=== PATIENT | male | born 1975 | race Caucasian/White ===

== ENCOUNTER 2016-12-23 03:41 | Inpatient (IN) | payer OTHER ==
[~2016-12-23] VITALS: Ht 175.3 cm; Wt 106.1 kg
[2016-12-23] VITALS (7 sets, daily range): BP systolic 95–119; BP diastolic 52–61; PULSE 77–99; RESP 14–18; TEMP 97–98.9; O2SAT 95–98
[~2016-12-23 03:41] MED LIST: CLON1 PO; SERO100T PO; SERO400T PO; TOPI25 PO; ZOLO50TA PO
[2016-12-23] MEDS ORDERED: GENTAMICIN 80 MG PREMIX 100 ML ONE (03:45)
[2016-12-23 03:58] LABS: I-STAT POTASSIUM 3.6 MMOL/L (3.5-4.9)
[2016-12-23 04:03] LABS: AUTOMATED NEUTROPHIL # 9.2 TH/MM3 (1.8-7.7); BASOPHIL # 0.1 TH/MM3 (0-0.2); BASOPHIL % 0.5 % (0.0-2.0); EOSINOPHIL % 0.2 % (0.0-4.0); HEMATOCRIT 39.6 % (39.0-51.0); HEMO FLAGS DIFF FINAL; LYMPH % 21.5 % (9.0-44.0); LYMPHOCYTE # 2.7 TH/MM3 (1.0-4.8); MEAN CELL VOLUME 91.9 FL (80.0-100.0); MEAN CORPUSCULAR HEMOGLOBIN 31.4 PG (27.0-34.0); MEAN CORPUSCULAR HGB CONC 34.2 % (32.0-36.0); MONO % 5.2 % (0.0-8.0); NEUT % 72.6 % (16.0-70.0); PLATELET COUNT 312 TH/MM3 (150-450); RED BLOOD COUNT 4.31 MIL/MM3 (4.50-5.90); RED CELL DISTRIBUTION WIDTH 13.2 % (11.6-17.2); WHITE BLOOD COUNT 12.7 TH/MM3 (4.0-11.0)
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
[2016-12-23] MEDS ORDERED: HALOPERIDOL LACTATE 5 MG/ML AMP ONE (04:13)
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
[2016-12-23 04:14] LABS: APTT (PATIENT) 23.5 SEC (24.3-30.1); PROTHROMBIN TIME - PATIENT 10.8 SEC (9.8-11.6)
[2016-12-23] MEDS ORDERED: IOHEXOL 350 MG/ML 10 ML VIAL (for RAD DIAG) IV ONE (04:14)
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
[2016-12-23] MEDS ORDERED: DIPHTH/TETANUS/ACEL PERTUSSIS (BOOSTER) 0.5 ML VIAL/PFS IM ONE (04:16)
[2016-12-23] MEDS ORDERED: ceFAZolin 2 GM PREMIX 50 ML IV STA (04:17)
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
[2016-12-23] MEDS ORDERED: CHLORHEXIDINE GLUCONATE 2 % 1 PACK (2 CLOTHS) TOP PRN (04:45)
[2016-12-23] MEDS ORDERED: ENALAPRILAT 1.25 MG/ML VIAL IV PRN (04:45)
[2016-12-23] MEDS ORDERED: ONDANSETRON HCL 4 MG/2 ML VIAL IV PRN (04:45)
[2016-12-23] MEDS ORDERED: SODIUM CHLORIDE 0.9% FLUSH 10 ML FLUSH IV FLUSH PRN (04:45)
[2016-12-23] MEDS ORDERED: MISCELLANEOUS NURSING INFORMATION XX SCH (04:45)
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
[2016-12-23] MEDS: LACTATED RINGER'S 1000 ML INJ 1,000 ML IV SCH ×3 (05:17→13:59)
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
[2016-12-23] MEDS: HYDROmorphone HCL PF 1 MG/ML VIAL IVP PRN (07:33)
[2016-12-23] MEDS ORDERED: FAMOTIDINE 20 MG/2 ML VIAL ONE (08:23)
[2016-12-23] MEDS ORDERED: HYDROmorphone HCL PF 2 MG/ML VIAL ONE (08:23)
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
[2016-12-23] MEDS ORDERED: MIDAZOLAM HCL 2 MG/2 ML VIAL ONE (08:43)
[2016-12-23] MEDS ORDERED: VANCOMYCIN HCL 1000 MG VIAL ONE (08:46)
[2016-12-23] MEDS ORDERED: SODIUM CHLOR 0.9% 250 ML INJ 250 ML ONE (08:47)
[2016-12-23] MEDS ORDERED: GENTAMICIN SULFATE 80 MG/2 ML VIAL ONE (08:47)
[2016-12-23] MEDS ORDERED: fentaNYL CITRATE 250 MCG/5 ML AMP ONE (08:54)
[2016-12-23] MEDS ORDERED: ACETAMINOPHEN 1000 MG/100 ML VIAL IV ONE (08:54)
[2016-12-23] MEDS: BACITRACIN TOP OINT 15 GM TUBE TOP SCH ×2 (09:00→20:06)
[2016-12-23] MEDS: DOCUSATE SODIUM 50 MG/SENNA 8.6 MG TAB PO SCH ×2 (09:00→20:06)
[2016-12-23] MEDS ORDERED: BUPIVACAINE/EPINEPHRINE 0.25% PF 10 ML VIAL ONE (09:51)
[2016-12-23] MEDS ORDERED: NEOSTIGMINE 3 MG/3 ML SYR IV ONE (11:07)
[2016-12-23] MEDS ORDERED: PROPOFOL 200 MG/20 ML AMP IV ONE (11:07)
[2016-12-23] MEDS ORDERED: LACTATED RINGER'S 1000 ML INJ 1,000 ML IV ONE (11:08)
[2016-12-23] MEDS ORDERED: ONDANSETRON HCL 4 MG/2 ML VIAL IV PUSH ONE (11:08)
[2016-12-23] MEDS ORDERED: PHENYLEPH/NS 1000 MCG/10 ML SYR IV ONE (11:08)
[2016-12-23] MEDS: 1/2 NS + KCL 20 MEQ INJ 1,000 ML IV SCH ×2 (11:12→20:07)
--- NOTE | 2016-12-23 11:20 | PD.OP ---
cc: Romel Lizarraga MD Operative Report Date of Surgery: Dec 23, 2016 Preoperative Diagnosis: Displaced left femoral shaft open fracture Postoperative Diagnosis: Procedure: Irrigation and debridement open fracture, Left femur reduction and intramedullary nail fixation Surgeon: Romel Lizarraga Spanish Linguist(s): ALYSIA Araujo PA-C The surgical procedure was assisted by my physician orthotic assistant. My P.A. presence was necessary throughout this case for the manipulation and positioning of the surgical extremity. My P.A. was assisting me throughout the duration of this procedure. The skill set of a physician orthotic assistant was medically necessary to complete this procedure. During the surgical case the business office technology instructor was working at the back table and the physician orthotic assistant was directly assisting me. Operation and Findings: Implants used: 380 mm x [10]mm Synthes femoral nail Patient was seen and evaluated preoperatively. The patient has comminuted open left femur fracture. The risk and benefits of surgery were discussed in depth with the patients family to include bleeding, infection, nonunion, malunion, need for hip replacement, painful hardware, as well as medical competitions including blood clots, stroke, heart attack, and . Informed consent was obtained. Operative site was marked. Patient was brought to the operating room and placed on fracture table. IV sedation was administered by anesthesiologist. Timeout procedure was performed. Hip and leg were prepped with alcohol followed by DuraPrep and draped in the usual sterile fashion. IV antibiotics were given prior to incision. Procedure began with irrigation and debridement of open fracture. A 5 inch incision was made over the lateral thigh. Iliotibial band was split in line with fibers. Vastus lateralis was elevated anteriorly. Fracture was visualized. Overall the wound appeared to be clean. Curettes and rongeurs were used to debride soft tissue and bone. Wound was now thoroughly irrigated with 3 L of sterile saline. Wound appeared be very clean at this time. Next attention was turned towards reduction of fracture. Traction was applied. The leg was manipulated to achieve reduction. Excellent reduction was achieved. Fluoroscopy was used to confirm reduction. A three inch incision was made proximal to the trochanter. Subcutaneous tissue was dissected bluntly. Guidepin was placed at the piriformis fossa and advanced into the femoral canal. Fluoroscopy confirmed appropriate guidepin placement. A opening reamer was placed over the guidepin. A long ball tipped guide pin was now placed down the femoral canal into the center of the distal femur. The fracture fragments were held in a reduced position while guidepin was placed. The nail length was now measured. Fluoroscopy confirmed appropriate guidepin placement. Flexible reamers were now passed over the guidepin to ream the intramedullary canal. The femoral nail was attached to the insertion handle. Nail was now placed over the guidepin into the femoral canal. Fluoroscopy confirmed appropriate nail placement. A second incision was made over the lateral thigh. Cannulas were placed through the insertion handle down to the femur. Using the insertion handle as a guide the proximal screw holes were drilled. Appropriate length screws were now placed. Traction was released and compression was applied. Next, using perfect twin hills technique two distal interlocking screws were placed. Screw holes were predrilled and screw lengths were measured. Final fluoroscopy revealed well aligned fracture with well-placed hardware. Incision was closed with #1 PDS, 3-0 PDS and joshua. Sterile dressings were applied. Patient was awakened and transferred to recovery room. Romel Lizarraga MD Dec 23, 2016 11:20
[2016-12-23] MEDS ORDERED: DO NOT ADM ANY ANTICOAGULANT DRUGS PRN (11:38)
[2016-12-23] MEDS ORDERED: LORazepam 2 MG/ML VIAL ONE (11:47)
[2016-12-23] MEDS ORDERED: *MEPERIDINE 25 MG INJ VIAL PERIprocedural Use ONLY ONE (11:51)
[2016-12-23] MEDS ORDERED: *morphine SULFATE 8 MG/ML PERIprocedure ONLY ONE (12:21)
[2016-12-23] MEDS: CALCIUM/VITAMIN D 250 MG/125 U TAB PO SCH ×2 (13:47→16:57)
[2016-12-23] MEDS: ACETAMINOPHEN/HYDROcodone 325 MG/10 MG TAB PO PRN ×3 (13:48→21:20)
[2016-12-23] MEDS: KETOROLAC TROMETHAMINE 30 MG/ML (IVP) VIAL IVP SCH ×2 (13:49→21:19)
--- NOTE | 2016-12-23 13:54 | HHI.PR ---
Subjective Subjective Notes S/P Reduction of left femur with IM alayna fixation Objective Vitals/I&O Vital Signs Date Time Temp Pulse Resp B/P Pulse Ox O2 Delivery O2 Flow Rate FiO2 12/23/16 12:30 97.8 80 18 122/58 97 Nasal Cannula 12/23/16 12:15 2 Labs Laboratory Tests Test 12/23/16 03:44 White Blood Count 12.7 Red Blood Count 4.31 Hemoglobin 13.6 Bedside Hemoglobin 13.3 Hematocrit 39.6 Bedside Hematocrit 39.0 Mean Corpuscular Volume 91.9 Mean Corpuscular Hemoglobin 31.4 Mean Corpuscular Hemoglobin 34.2 Concent Red Cell Distribution Width 13.2 Platelet Count 312 Mean Platelet Volume 7.5 Neutrophils (%) (Auto) 72.6 Lymphocytes (%) (Auto) 21.5 Monocytes (%) (Auto) 5.2 Eosinophils (%) (Auto) 0.2 Basophils (%) (Auto) 0.5 Neutrophils # (Auto) 9.2 Lymphocytes # (Auto) 2.7 Monocytes # (Auto) 0.7 Eosinophils # (Auto) 0.0 Basophils # (Auto) 0.1 CBC Comment DIFF FINAL Differential Comment Prothrombin Time 10.8 Prothromb Time International 1.0 Ratio Activated Partial 23.5 Thromboplast Time Bedside Sodium 140 Bedside Potassium 3.6 Bedside Chloride 102 Bedside Blood Urea Nitrogen 11 Bedside Creatinine 1.2 Bedside Glucose 173 Ethyl Alcohol Level 123 Blood Type A POSITIVE Antibody Screen NEGATIVE A/P Assessment and Plan INJURIES: LEFT Open femur fx PMHx: tobacco abuse, drug abuse 12/23: Reduction of left femur with IM alayna fixation Diet: Regular Pulm: IS Pain: [place], Dilaudid IV, Toradol IV Activity: BR. PT ordered (TTWB LLE) Bowel: Pericolace 2 tabs, Lactulose DVT: SCDs LEFT Open femur fx Orthopedics consulted S/P Reduction of left femur with IM alayna fixation Pain control OOB- PT TTWB LLE IV Ancef Case management consulted to assist discharge planning. Sanjay Ahn Dec 23, 2016 13:54
--- NOTE | 2016-12-23 14:58 | RADRPT ---
EXAM DATE/TIME: 12/23/2016 10:54 [facility] COMPARISON: No previous studies available for comparison. INDICATIONS : ORIF left femur IM nail. MEDICAL HISTORY : None. SURGICAL HISTORY : None. ENCOUNTER: Subsequent ACUITY: 1 day PAIN SCORE: Non-responsive. LOCATION: Left femur. FINDINGS: 6 images are recorded digitally in the operating room using C-arm during placement of an intramedulla ry alayna in the femur. There are 2 proximal and 2 distal intercalated screws. CONCLUSION: Intraoperative images. Santosh Cardoso MD on December 23, 2016 at 14:56 Board Certified Radiologist. This report was verified electronically.
[2016-12-23 15:36] LABS: HEMATOCRIT 31.3 % (39.0-51.0); REVIEW FLAG FINAL
[2016-12-23] MEDS: ceFAZolin 2 GM PREMIX 50 ML IV SCH (16:56)
[2016-12-23] MEDS: GENTAMICIN 80 MG PREMIX 100 ML IV SCH (20:07)
[2016-12-23 21:07] LABS: MEAN CORPUSCULAR HGB CONC 36.3 % (32.0-36.0)
[2016-12-24] VITALS (7 sets, daily range): BP systolic 110–144; BP diastolic 59–73; PULSE 79–105; RESP 16–18; TEMP 98.1–99.5; O2SAT 94–97
[2016-12-24] MEDS: HYDROmorphone HCL PF 1 MG/ML VIAL IVP PRN ×2 (00:04→06:20)
[2016-12-24] MEDS: ceFAZolin 2 GM PREMIX 50 ML IV SCH ×3 (01:48→17:42)
[2016-12-24] MEDS: GENTAMICIN 80 MG PREMIX 100 ML IV SCH ×3 (04:00→20:51)
[2016-12-24] MEDS ORDERED: CHLORHEXIDINE GLUCONATE 2 % 1 PACK (2 CLOTHS) TOP SCH (04:00)
[2016-12-24] MEDS: ACETAMINOPHEN/HYDROcodone 325 MG/10 MG TAB PO PRN ×2 (04:23→08:54)
[2016-12-24] MEDS: KETOROLAC TROMETHAMINE 30 MG/ML (IVP) VIAL IVP SCH ×3 (06:16→20:51)
--- NOTE | 2016-12-24 06:35 | PD.ORT.PN ---
Subjective Subjective Remarks pain controlled no new complaints Objective Vitals Vital Signs Date Time Temp Pulse Resp B/P Pulse Ox O2 Delivery O2 Flow Rate FiO2 12/24/16 04:00 99.1 96 17 121/59 96 12/23/16 19:00 98.9 77 16 114/61 95 12/23/16 16:00 97.5 90 18 98/54 96 12/23/16 12:30 97.8 80 18 122/58 97 Nasal Cannula 12/23/16 12:15 91 18 124/58 98 Nasal Cannula 2 12/23/16 12:00 98.5 92 18 99/58 95 12/23/16 12:00 77 17 123/55 97 Nasal Cannula 2 12/23/16 11:45 80 28 104/58 97 Nasal Cannula 2 12/23/16 11:41 97.3 79 25 93/50 98 Nasal Cannula 2 12/23/16 06:52 97.0 92 18 119/56 98 12/23/16 06:37 Nasal Cannula 2.00 I/O 12/23/16 12/23/16 12/23/16 12/24/16 12/24/16 12/24/16 07:00 15:00 23:00 07:00 15:00 23:00 Intake Total 1150 ml 900 ml 1440 ml Output Total 700 ml 810 ml 500 ml 600 ml Balance -700 ml 340 ml 400 ml 840 ml Intake Oral 50 ml 480 ml 1440 ml IV Total 420 ml Other 1100 ml Output Urine Total 700 ml 660 ml 500 ml 600 ml Estimated Blood Loss 150 ml # Voids 2 6 # Bowel Movements 0 0 Result Diagram: 12/23/16 1432 Imaging Last 24 hours Impressions Thoracic Spine CT 12/23/16347 Signed Impressions: Service Date/Time: Friday, December 23, 2016 04:08 - CONCLUSION: Normal examination except for a questionable right-sided inferior endplate hairline fracture involving T1. Db Bennett MD Pelvis X-Ray 12/23/16347 Signed Impressions: Service Date/Time: Friday, December 23, 2016 03:37 - CONCLUSION: Unremarkable examination of the pelvis. Db Bennett MD Lumbar Spine CT 12/23/16347 Signed Impressions: Service Date/Time: Friday, December 23, 2016 04:08 - CONCLUSION: No evidence of acute fracture but there is a bilateral L5 pars defect Db Bennett MD Head CT 12/23/16347 Signed Impressions: Service Date/Time: Friday, December 23, 2016 04:01 - CONCLUSION: Normal examination. Db Bennett MD Femur X-Ray 12/23/16347 Signed Impressions: Service Date/Time: Friday, December 23, 2016 03:37 - CONCLUSION: Transverse fracture mid shaft left femur. Db Bennett MD Chest X-Ray 12/23/16347 Signed Impressions: Service Date/Time: Friday, December 23, 2016 03:37 - CONCLUSION: Normal examination. Db Bennett MD Chest CT 12/23/16347 Signed Impressions: Service Date/Time: Friday, December 23, 2016 04:08 - CONCLUSION: Normal examination. Db Bennett MD Cervical Spine CT 12/23/16347 Signed Impressions: Service Date/Time: Friday, December 23, 2016 04:01 - CONCLUSION: Normal examination. Chronic disc space narrowing at both C5-6 and C6-7 levels. Db Bennett MD Abdomen/Pelvis CT 12/23/16347 Signed Impressions: Service Date/Time: Friday, December 23, 2016 04:08 - CONCLUSION: Tiny amount of fluid adjacent to the spleen otherwise unremarkable CT scan of the abdomen and pelvis Db Bennett MD Tibia/Fibula X-Ray 12/23/16 0000 Signed Impressions: Service Date/Time: Friday, December 23, 2016 03:37 - CONCLUSION: Unremarkable examination of the left tibia and fibula. Db Bennett MD Objective Remarks LLE: clean dry dressings and intact. NVI distally. Neg kelli. Assessment & Plan Assessment and Plan Left open Midshaft Femur Fx S/P I&D and IMN POD#1 PT - TTWB L LE Daily dressing changes beginning POD #2 Lovenox incentive spirometry Plan for DC Tomorrow or Thursday with [facility] Cezar Morel Jr. Dec 24, 2016 06:35
[2016-12-24] MEDS ORDERED: WALKER WHEELS/F1 MIS (06:36)
--- NOTE | 2016-12-24 06:37 | HHI.FF ---
Face to Face Verification Diagnosis: (1) Open left femoral fracture Nursing Dressing Changes: Daily dressing change, Kenan wrap ( over main incision), Xeroform, Coverderm/Primapore I have seen patient Davide Aguirre on 12/24/16. My clinical findings support the need for the requested home health care services because: Limited ability to care for self I certify that my clinical findings support that this patient is homebound because: Unsteady gait/balance Cezar Morel Jr. Dec 24, 2016 06:37
[2016-12-24] MEDS: 1/2 NS + KCL 20 MEQ INJ 1,000 ML IV SCH (07:12)
[2016-12-24 07:15] LABS: AUTOMATED NEUTROPHIL # 4.5 TH/MM3 (1.8-7.7); BASOPHIL % 0.3 % (0.0-2.0); EOSINOPHIL % 0.6 % (0.0-4.0); LYMPH % 26.3 % (9.0-44.0); MEAN CELL VOLUME 90.4 FL (80.0-100.0); MEAN CORPUSCULAR HEMOGLOBIN 32.8 PG (27.0-34.0); MONO % 12.7 % (0.0-8.0); NEUT % 60.1 % (16.0-70.0); PLATELET COUNT 205 TH/MM3 (150-450); RED BLOOD COUNT 2.77 MIL/MM3 (4.50-5.90); RED CELL DISTRIBUTION WIDTH 13.2 % (11.6-17.2); WHITE BLOOD COUNT 7.4 TH/MM3 (4.0-11.0)
[2016-12-24 07:23] LABS: HEMO FLAGS AUTO DIFF
[2016-12-24 07:30] LABS: BICARBONATE 27.3 MEQ/L (21.0-32.0); POTASSIUM 3.8 MEQ/L (3.5-5.1)
[2016-12-24 08:27] LABS: SCAN/DIFF AUTO DIFF CONFIRMED
[2016-12-24] MEDS: CALCIUM/VITAMIN D 250 MG/125 U TAB PO SCH ×3 (08:54→17:42)
[2016-12-24] MEDS: DOCUSATE SODIUM 50 MG/SENNA 8.6 MG TAB PO SCH ×2 (08:54→20:51)
[2016-12-24] MEDS: LACTULOSE SYRUP 20 GM/30 ML CUP PO SCH (08:54)
[2016-12-24] MEDS: BACITRACIN TOP OINT 15 GM TUBE TOP SCH ×2 (08:58→20:51)
--- NOTE | 2016-12-24 11:29 | HHI.PR ---
Subjective Subjective Notes Reports he's having difficulty moving his left leg due to pain States he was unable to stand yesterday with physical therapy due to pain Objective Vitals/I&O Vital Signs Date Time Temp Pulse Resp B/P Pulse Ox O2 Delivery O2 Flow Rate FiO2 12/24/16 09:00 96 21 12/24/16 08:06 98.9 83 16 110/69 12/23/16 12:30 Nasal Cannula 12/23/16 12:15 2 Labs Laboratory Tests Test 12/23/16 12/24/16 14:32 06:40 Hemoglobin 10.9 9.1 Hematocrit 31.3 25.0 White Blood Count 7.4 Red Blood Count 2.77 Mean Corpuscular Volume 90.4 Mean Corpuscular Hemoglobin 32.8 Mean Corpuscular Hemoglobin 36.3 Concent Red Cell Distribution Width 13.2 Platelet Count 205 Mean Platelet Volume 7.6 Neutrophils (%) (Auto) 60.1 Lymphocytes (%) (Auto) 26.3 Monocytes (%) (Auto) 12.7 Eosinophils (%) (Auto) 0.6 Basophils (%) (Auto) 0.3 Neutrophils # (Auto) 4.5 Lymphocytes # (Auto) 2.0 Monocytes # (Auto) 0.9 Eosinophils # (Auto) 0.0 Basophils # (Auto) 0.0 CBC Comment AUTO DIFF Differential Comment AUTO DIFF CONFIRMED Sodium Level 136 Potassium Level 3.8 Chloride Level 102 Carbon Dioxide Level 27.3 Anion Gap 7 Blood Urea Nitrogen 12 Creatinine 1.02 Estimat Glomerular Filtration 63 Rate Random Glucose 97 Calcium Level 8.0 Radiology Last Impressions Thoracic Spine CT 12/23/16347 Signed Impressions: Service Date/Time: Friday, December 23, 2016 04:08 - CONCLUSION: Normal examination except for a questionable right-sided inferior endplate hairline fracture involving T1. Db Bennett MD Pelvis X-Ray 12/23/16347 Signed Impressions: Service Date/Time: Friday, December 23, 2016 03:37 - CONCLUSION: Unremarkable examination of the pelvis. Db Bennett MD Lumbar Spine CT 12/23/16347 Signed Impressions: Service Date/Time: Friday, December 23, 2016 04:08 - CONCLUSION: No evidence of acute fracture but there is a bilateral L5 pars defect Db Bennett MD Head CT 12/23/168 Signed Impressions: Service Date/Time: Friday, December 23, 2016 04:01 - CONCLUSION: Normal examination. Db Bennett MD Femur X-Ray 12/23/168 Signed Impressions: Service Date/Time: Friday, December 23, 2016 03:37 - CONCLUSION: Transverse fracture mid shaft left femur. Db Bennett MD Chest X-Ray 12/23/16347 Signed Impressions: Service Date/Time: Friday, December 23, 2016 03:37 - CONCLUSION: Normal examination. Db Bennett MD Chest CT 12/23/16347 Signed Impressions: Service Date/Time: Friday, December 23, 2016 04:08 - CONCLUSION: Normal examination. Db Bennett MD Cervical Spine CT 12/23/168 Signed Impressions: Service Date/Time: Friday, December 23, 2016 04:01 - CONCLUSION: Normal examination. Chronic disc space narrowing at both C5-6 and C6-7 levels. Db Bennett MD Abdomen/Pelvis CT 12/23/16 0348 Signed Impressions: Service Date/Time: Friday, December 23, 2016 04:08 - CONCLUSION: Tiny amount of fluid adjacent to the spleen otherwise unremarkable CT scan of the abdomen and pelvis Db Bennett MD Tibia/Fibula X-Ray 12/23/16 0000 Signed Impressions: Service Date/Time: Friday, December 23, 2016 03:37 - CONCLUSION: Unremarkable examination of the left tibia and fibula. Db Bennett MD Narrative Exam GENERAL: 41-year-old well-nourished, well developed male lying in bed. SKIN: Warm and dry. Scattered abrasions noted. HEAD: Normocephalic. ENT: No nasal bleeding or discharge. Mucous membranes pink and moist. NECK: Trachea midline. No JVD. CARDIOVASCULAR: Regular rate and rhythm. RESPIRATORY: No accessory muscle use. Lungs clear to auscultation. Breath sounds equal bilaterally. GASTROINTESTINAL: Abdomen soft, non-tender, nondistended. + BS. MUSCULOSKELETAL: Extremities without cyanosis, or edema. LEFT thigh ZULEYKA wrap in place. LEFT posterior arm ecchymosis noted. NEUROLOGICAL: Awake and alert. Normal speech. A/P Assessment and Plan INJURIES: LEFT Open femur fx Concussion PMHx: tobacco abuse, drug abuse 12/23: Reduction of left femur with IM alayna fixation Diet: Regular Pulm: IS Pain: [place], Dilaudid IV, Toradol IV. Change to pain meds today for better pain control. Activity: OOB. PT ordered (TTWB LLE) Bowel: Liliya-colace 2 tabs, Lactulose. No BM yet DVT: SCDs, Lovenox 30 BID LEFT Open femur fx Orthopedics consulted S/P Reduction of left femur with IM alayna fixation Pain control OOB- PT TTWB LLE IV Ancef Lovenox Nursing to update Med Rec. Case management consulted to assist discharge planning. Plan to discharge home with home health care tomorrow Attending Statement The exam, history, and the medical decision-making described in the above note were completed with the assistance of the mid-level provider. I reviewed and agree with the findings presented. I attest that I had a [id number] encounter with the patient on the same day, and personally performed and documented my assessment and findings in the medical record. Sanjay Ahn Dec 24, 2016 11:29 Sidney Watkins MD Dec 24, 2016 16:14
[2016-12-24] MEDS ORDERED: CRUT48MI (11:37)
[2016-12-24] MEDS: ENOXAPARIN SODIUM 30 MG/0.3 ML SYRINGE SQ SCH ×2 (13:18→23:56)
[2016-12-24] MEDS: METHOCARBAMOL 500 MG TAB PO SCH ×2 (13:19→20:50)
[2016-12-24] MEDS: MORPHINE SULFATE 4 MG/ML INJ IV PUSH PRN (16:25)
[2016-12-25] VITALS (7 sets, daily range): BP systolic 115–126; BP diastolic 65–79; PULSE 83–100; RESP 17–20; TEMP 97.3–99.5; O2SAT 95–97
[2016-12-25] MEDS: ceFAZolin 2 GM PREMIX 50 ML IV SCH ×2 (01:16→11:58)
[2016-12-25] MEDS: GENTAMICIN 80 MG PREMIX 100 ML IV SCH ×2 (04:50→11:58)
[2016-12-25] MEDS: METHOCARBAMOL 500 MG TAB PO SCH ×3 (04:50→21:54)
[2016-12-25] MEDS: KETOROLAC TROMETHAMINE 30 MG/ML (IVP) VIAL IVP SCH (04:50)
[2016-12-25] MEDS: MORPHINE SULFATE 4 MG/ML INJ IV PUSH PRN (04:50)
[2016-12-25 06:19] LABS: HEMATOCRIT 22.8 % (39.0-51.0)
[2016-12-25 06:23] LABS: REVIEW FLAG FINAL
--- NOTE | 2016-12-25 06:54 | PD.ORT.PN ---
Subjective Subjective Remarks POD 2 s/p IMN with I&D left femoral shaft fx reports pain. states out of bed briefly yesterday but pain and swelling Objective Vitals Vital Signs Date Time Temp Pulse Resp B/P Pulse Ox O2 Delivery O2 Flow Rate FiO2 12/25/16 00:00 99.5 95 20 120/65 95 12/24/16 20:42 96 21 12/24/16 20:00 99.5 105 18 144/73 94 12/24/16 19:03 Room Air 12/24/16 16:00 98.3 79 16 114/65 97 12/24/16 12:10 98.1 91 16 118/64 96 12/24/16 09:00 96 21 12/24/16 08:06 98.9 83 16 110/69 96 I/O 12/24/16 12/24/16 12/24/16 12/25/16 12/25/16 12/25/16 07:00 15:00 23:00 07:00 15:00 23:00 Intake Total 1440 ml 480 ml 128 ml 207 ml Output Total 600 ml 850 ml 200 ml Balance 840 ml -370 ml -72 ml 207 ml Intake Oral 1440 ml 480 ml IV Total 128 ml 207 ml Output Urine Total 600 ml 850 ml 200 ml # Voids 6 # Bowel Movements 0 0 0 Result Diagram: 12/25/16 0538 12/24/16 0640 Imaging Last 24 hours Impressions Thoracic Spine CT 12/23/16347 Signed Impressions: Service Date/Time: Friday, December 23, 2016 04:08 - CONCLUSION: Normal examination except for a questionable right-sided inferior endplate hairline fracture involving T1. Db Bennett MD Pelvis X-Ray 12/23/16347 Signed Impressions: Service Date/Time: Friday, December 23, 2016 03:37 - CONCLUSION: Unremarkable examination of the pelvis. Db Bennett MD Lumbar Spine CT 12/23/16347 Signed Impressions: Service Date/Time: Friday, December 23, 2016 04:08 - CONCLUSION: No evidence of acute fracture but there is a bilateral L5 pars defect Db Bennett MD Head CT 12/23/16347 Signed Impressions: Service Date/Time: Friday, December 23, 2016 04:01 - CONCLUSION: Normal examination. Db Bennett MD Femur X-Ray 12/23/168 Signed Impressions: Service Date/Time: Friday, December 23, 2016 03:37 - CONCLUSION: Transverse fracture mid shaft left femur. Db Bennett MD Chest X-Ray 12/23/16347 Signed Impressions: Service Date/Time: Friday, December 23, 2016 03:37 - CONCLUSION: Normal examination. Db Bennett MD Chest CT 12/23/16347 Signed Impressions: Service Date/Time: Friday, December 23, 2016 04:08 - CONCLUSION: Normal examination. Db Bennett MD Cervical Spine CT 12/23/16347 Signed Impressions: Service Date/Time: Friday, December 23, 2016 04:01 - CONCLUSION: Normal examination. Chronic disc space narrowing at both C5-6 and C6-7 levels. Db Bennett MD Abdomen/Pelvis CT 12/23/168 Signed Impressions: Service Date/Time: Friday, December 23, 2016 04:08 - CONCLUSION: Tiny amount of fluid adjacent to the spleen otherwise unremarkable CT scan of the abdomen and pelvis Db Bennett MD Tibia/Fibula X-Ray 12/23/16 0000 Signed Impressions: Service Date/Time: Friday, December 23, 2016 03:37 - CONCLUSION: Unremarkable examination of the left tibia and fibula. Db Bennett MD Objective Remarks LLE: clean dry dressings and intact. NVI distally. Neg kelli. compartments soft Assessment & Plan Assessment and Plan 1) Left open Midshaft Femur Fx S/P I&D and IMN POD#2 PT - TTWB L LE Daily dressing changes DVT prophylaxis with Lovenox then transition to Xarelto upon DC incentive spirometry Plan for DC once Abx completed and ambulating safely with therapy. patient lives in apt that has a lot of stairs. will need to be comfortable with stairs before can be discharged. may need CM to look at [facility] rehab f/u with Mervat or JOVANNA in 2 weeks Obed Lenz Dec 25, 2016 06:54
[2016-12-25] MEDS ORDERED: PERC7.5T13 PO (06:55)
[2016-12-25] MEDS ORDERED: XARE10TA PO (06:55)
--- NOTE | 2016-12-25 10:05 | HHI.PR ---
Subjective Subjective Notes OOB yesterday, did not tolerate well d/t pain Reports throbbing pain in left thigh Objective Vitals/I&O Vital Signs Date Time Temp Pulse Resp B/P Pulse Ox O2 Delivery O2 Flow Rate FiO2 12/25/16 08:00 98.0 86 18 117/67 95 12/24/16 20:42 21 12/24/16 19:03 Room Air 12/23/16 12:15 2 Labs Laboratory Tests Test 12/25/16 05:38 Hemoglobin 8.3 Hematocrit 22.8 Radiology Last Impressions Thoracic Spine CT 12/23/16347 Signed Impressions: Service Date/Time: Friday, December 23, 2016 04:08 - CONCLUSION: Normal examination except for a questionable right-sided inferior endplate hairline fracture involving T1. Db Bennett MD Pelvis X-Ray 12/23/16347 Signed Impressions: Service Date/Time: Friday, December 23, 2016 03:37 - CONCLUSION: Unremarkable examination of the pelvis. Db Bennett MD Lumbar Spine CT 12/23/16347 Signed Impressions: Service Date/Time: Friday, December 23, 2016 04:08 - CONCLUSION: No evidence of acute fracture but there is a bilateral L5 pars defect Db Bennett MD Head CT 12/23/16347 Signed Impressions: Service Date/Time: Friday, December 23, 2016 04:01 - CONCLUSION: Normal examination. Db Bennett MD Femur X-Ray 12/23/16347 Signed Impressions: Service Date/Time: Friday, December 23, 2016 03:37 - CONCLUSION: Transverse fracture mid shaft left femur. Db Bennett MD Chest X-Ray 12/23/168 Signed Impressions: Service Date/Time: Friday, December 23, 2016 03:37 - CONCLUSION: Normal examination. Db Bennett MD Chest CT 12/23/168 Signed Impressions: Service Date/Time: Friday, December 23, 2016 04:08 - CONCLUSION: Normal examination. Db Bennett MD Cervical Spine CT 12/23/168 Signed Impressions: Service Date/Time: Friday, December 23, 2016 04:01 - CONCLUSION: Normal examination. Chronic disc space narrowing at both C5-6 and C6-7 levels. Db Bennett MD Abdomen/Pelvis CT 12/23/16 0348 Signed Impressions: Service Date/Time: Friday, December 23, 2016 04:08 - CONCLUSION: Tiny amount of fluid adjacent to the spleen otherwise unremarkable CT scan of the abdomen and pelvis Db Bennett MD Tibia/Fibula X-Ray 12/23/16 0000 Signed Impressions: Service Date/Time: Friday, December 23, 2016 03:37 - CONCLUSION: Unremarkable examination of the left tibia and fibula. Db Bennett MD Narrative Exam GENERAL: 41-year-old well-nourished, well developed male lying in bed. SKIN: Warm and dry. Scattered abrasions noted. HEAD: Normocephalic. ENT: No nasal bleeding or discharge. Mucous membranes pink and moist. NECK: Trachea midline. No JVD. CARDIOVASCULAR: Regular rate and rhythm. RESPIRATORY: No accessory muscle use. Lungs clear to auscultation. Breath sounds equal bilaterally. GASTROINTESTINAL: Abdomen soft, non-tender, nondistended. + BS. MUSCULOSKELETAL: Extremities without cyanosis, or edema. LEFT thigh ZULEYKA wrap in place. LEFT posterior arm ecchymosis noted. NEUROLOGICAL: Awake and alert. Speech clear. A/P Assessment and Plan INJURIES: LEFT Open femur fx Concussion PMHx: tobacco abuse, drug abuse 12/23: Reduction of left femur with IM alayna fixation Diet: Regular, tolerating Pulm: IS, encouraged use Pain: Roxicodone, Motrin, Morphine IV for breakthrough. Added Neurontin and Robaxin dose increased. Activity: OOB. PT evaluating (TTWB LLE) Bowel: Liliya-colace 2 tabs, Lactulose. No BM yet DVT: SCDs, Lovenox 30 BID LEFT Open femur fx Orthopedics consulted 12/23: Reduction of left femur with IM alayna fixation Pain control OOB- PT TTWB LLE IV Ancef Lovenox Hgb 8.3 today- recheck H&H in AM Nursing to update Med Rec. Case management consulted to assist discharge planning. Plan to discharge home with home health care tomorrow when pain is better controlled. Attending Statement The exam, history, and the medical decision-making described in the above note were completed with the assistance of the mid-level provider. I reviewed and agree with the findings presented. I attest that I had a [id number] encounter with the patient on the same day, and personally performed and documented my assessment and findings in the medical record. Sanjay Ahn Dec 25, 2016 10:05 Sidney Watkins MD Dec 25, 2016 16:46
[2016-12-25] MEDS: ENOXAPARIN SODIUM 30 MG/0.3 ML SYRINGE SQ SCH ×2 (11:57→21:55)
[2016-12-25] MEDS: CALCIUM/VITAMIN D 250 MG/125 U TAB PO SCH ×3 (11:58→17:36)
[2016-12-25] MEDS: GABAPENTIN 400 MG CAP PO SCH ×3 (11:58→17:36)
[2016-12-25] MEDS: LACTULOSE SYRUP 20 GM/30 ML CUP PO SCH (11:58)
[2016-12-25] MEDS: DOCUSATE SODIUM 50 MG/SENNA 8.6 MG TAB PO SCH ×2 (12:01→21:54)
[2016-12-25] MEDS: BACITRACIN TOP OINT 15 GM TUBE TOP SCH ×2 (12:01→21:58)
[2016-12-25] MEDS: MELATONIN 5 MG TAB PO SCH (21:54)
[2016-12-26] MEDS: METHOCARBAMOL 500 MG TAB PO SCH ×3 (05:12→22:29)
--- NOTE | 2016-12-26 06:55 | PD.ORT.PN ---
Subjective Subjective Remarks pain controlled no new complaints Feels the norco was more effective than the oxycodone Objective Vitals Vital Signs Date Time Temp Pulse Resp B/P Pulse Ox O2 Delivery O2 Flow Rate FiO2 12/25/16 23:50 98.8 88 17 126/66 97 12/25/16 19:50 98.7 88 17 119/66 96 12/25/16 16:01 97.6 100 18 125/79 97 12/25/16 12:22 96 12/25/16 12:00 97.3 83 18 115/71 96 12/25/16 08:00 98.0 86 18 117/67 95 I/O 12/25/16 12/25/16 12/25/16 12/26/16 12/26/16 12/26/16 07:00 15:00 23:00 07:00 15:00 23:00 Intake Total 207 ml 720 ml 1160 ml 600 ml Output Total 150 ml 850 ml 900 ml Balance 57 ml 720 ml 310 ml -300 ml Intake Oral 720 ml 1160 ml 600 ml IV Total 207 ml Output Urine Total 150 ml 850 ml 900 ml # Voids 3 # Bowel Movements 0 0 0 Result Diagram: 12/25/16 0538 12/24/16 0640 Imaging Last 24 hours Impressions Thoracic Spine CT 12/23/16347 Signed Impressions: Service Date/Time: Friday, December 23, 2016 04:08 - CONCLUSION: Normal examination except for a questionable right-sided inferior endplate hairline fracture involving T1. Db Bennett MD Pelvis X-Ray 12/23/16347 Signed Impressions: Service Date/Time: Friday, December 23, 2016 03:37 - CONCLUSION: Unremarkable examination of the pelvis. Db Bennett MD Lumbar Spine CT 12/23/16347 Signed Impressions: Service Date/Time: Friday, December 23, 2016 04:08 - CONCLUSION: No evidence of acute fracture but there is a bilateral L5 pars defect Db Bennett MD Head CT 12/23/16347 Signed Impressions: Service Date/Time: Friday, December 23, 2016 04:01 - CONCLUSION: Normal examination. Db Bennett MD Femur X-Ray 12/23/16347 Signed Impressions: Service Date/Time: Friday, December 23, 2016 03:37 - CONCLUSION: Transverse fracture mid shaft left femur. Db Bennett MD Chest X-Ray 12/23/16347 Signed Impressions: Service Date/Time: Friday, December 23, 2016 03:37 - CONCLUSION: Normal examination. Db Bennett MD Chest CT 12/23/168 Signed Impressions: Service Date/Time: Friday, December 23, 2016 04:08 - CONCLUSION: Normal examination. Db Bennett MD Cervical Spine CT 12/23/16347 Signed Impressions: Service Date/Time: Friday, December 23, 2016 04:01 - CONCLUSION: Normal examination. Chronic disc space narrowing at both C5-6 and C6-7 levels. Db Bennett MD Abdomen/Pelvis CT 12/23/168 Signed Impressions: Service Date/Time: Friday, December 23, 2016 04:08 - CONCLUSION: Tiny amount of fluid adjacent to the spleen otherwise unremarkable CT scan of the abdomen and pelvis Db Bennett MD Tibia/Fibula X-Ray 12/23/16 0000 Signed Impressions: Service Date/Time: Friday, December 23, 2016 03:37 - CONCLUSION: Unremarkable examination of the left tibia and fibula. Db Bennett MD Objective Remarks LLE: clean dry dressings and intact. NVI distally. Neg kelli. compartments soft Assessment & Plan Assessment and Plan 1) Left open Midshaft Femur Fx S/P I&D and IMN POD#3 PT - TTWB L LE Daily dressing changes xeroform over incision DVT prophylaxis with Lovenox then transition to Xarelto upon DC convert from oxycodone to hydrocodone incentive spirometry Plan for DC once Abx completed and ambulating safely with therapy. patient lives in apt that has a lot of stairs. will need to be comfortable with stairs before can be discharged. may need CM to look at [facility] rehab f/u with Mervat or JOVANNA in 2 weeks Cezar Morel Jr. Dec 26, 2016 06:54
[2016-12-26] MEDS ORDERED: ACETAMINOPHEN/HYDROcodone 325 MG/10 MG TAB PO PRN ×3 (07:00→07:15)
[2016-12-26 08:46] VITALS: BP 121/67; PULSE 78; RESP 14; TEMP 98.5; O2SAT 96
[2016-12-26] MEDS: BACITRACIN TOP OINT 15 GM TUBE TOP SCH ×2 (09:00→22:30)
[2016-12-26] MEDS: LACTULOSE SYRUP 20 GM/30 ML CUP PO SCH (09:04)
[2016-12-26] MEDS: DOCUSATE SODIUM 50 MG/SENNA 8.6 MG TAB PO SCH ×2 (09:04→21:00)
[2016-12-26] MEDS: GABAPENTIN 400 MG CAP PO SCH ×3 (09:04→17:43)
[2016-12-26] MEDS: CALCIUM/VITAMIN D 250 MG/125 U TAB PO SCH ×3 (09:04→17:43)
[2016-12-26] MEDS: ACETAMINOPHEN/HYDROcodone 325 MG/10 MG TAB PO PRN ×4 (09:05→23:39)
--- NOTE | 2016-12-26 12:25 | HHI.PR ---
Subjective Subjective Notes Still having significant pain at surgical site Ambulated 14 feet yesterday at a very slow pace Objective Vitals/I&O Vital Signs Date Time Temp Pulse Resp B/P Pulse Ox O2 Delivery O2 Flow Rate FiO2 12/26/16 08:46 98.5 78 14 121/67 96 12/24/16 20:42 21 12/24/16 19:03 Room Air 12/23/16 12:15 2 Labs Laboratory Tests Test 12/23/16 12/24/16 12/25/16 03:44 06:40 05:38 Bedside Hemoglobin 13.3 G/DL Bedside Hematocrit 39.0 % Prothrombin Time 10.8 SEC Prothromb Time International 1.0 RATIO Ratio Activated Partial 23.5 SEC Thromboplast Time Bedside Sodium 140 MMOL/L Bedside Potassium 3.6 MMOL/L Bedside Chloride 102 MMOL/L Bedside Blood Urea Nitrogen 11 MG/DL Bedside Creatinine 1.2 MG/DL Bedside Glucose 173 MG/DL Ethyl Alcohol Level 123 MG/DL Blood Type A POSITIVE Antibody Screen NEGATIVE White Blood Count 7.4 TH/MM3 Red Blood Count 2.77 MIL/MM3 Mean Corpuscular Volume 90.4 FL Mean Corpuscular Hemoglobin 32.8 PG Mean Corpuscular Hemoglobin 36.3 % Concent Red Cell Distribution Width 13.2 % Platelet Count 205 TH/MM3 Mean Platelet Volume 7.6 FL Neutrophils (%) (Auto) 60.1 % Lymphocytes (%) (Auto) 26.3 % Monocytes (%) (Auto) 12.7 % Eosinophils (%) (Auto) 0.6 % Basophils (%) (Auto) 0.3 % Neutrophils # (Auto) 4.5 TH/MM3 Lymphocytes # (Auto) 2.0 TH/MM3 Monocytes # (Auto) 0.9 TH/MM3 Eosinophils # (Auto) 0.0 TH/MM3 Basophils # (Auto) 0.0 TH/MM3 CBC Comment AUTO DIFF Differential Comment AUTO DIFF CONFIRMED Sodium Level 136 MEQ/L Potassium Level 3.8 MEQ/L Chloride Level 102 MEQ/L Carbon Dioxide Level 27.3 MEQ/L Anion Gap 7 MEQ/L Blood Urea Nitrogen 12 MG/DL Creatinine 1.02 MG/DL Estimat Glomerular Filtration 63 ML/MIN Rate Random Glucose 97 MG/DL Calcium Level 8.0 MG/DL Hemoglobin 8.3 GM/DL Hematocrit 22.8 % Radiology Last Impressions Thoracic Spine CT 12/23/16 9491 Signed Impressions: Service Date/Time: Friday, December 23, 2016 04:08 - CONCLUSION: Normal examination except for a questionable right-sided inferior endplate hairline fracture involving T1. Db Bennett MD Pelvis X-Ray 12/23/168 Signed Impressions: Service Date/Time: Friday, December 23, 2016 03:37 - CONCLUSION: Unremarkable examination of the pelvis. Db Bennett MD Lumbar Spine CT 12/23/16347 Signed Impressions: Service Date/Time: Friday, December 23, 2016 04:08 - CONCLUSION: No evidence of acute fracture but there is a bilateral L5 pars defect Db Bennett MD Head CT 12/23/16347 Signed Impressions: Service Date/Time: Friday, December 23, 2016 04:01 - CONCLUSION: Normal examination. Db Bennett MD Femur X-Ray 12/23/168 Signed Impressions: Service Date/Time: Friday, December 23, 2016 03:37 - CONCLUSION: Transverse fracture mid shaft left femur. Db Bennett MD Chest X-Ray 12/23/16347 Signed Impressions: Service Date/Time: Friday, December 23, 2016 03:37 - CONCLUSION: Normal examination. Db Bennett MD Chest CT 12/23/16 0348 Signed Impressions: Service Date/Time: Friday, December 23, 2016 04:08 - CONCLUSION: Normal examination. Db Bennett MD Cervical Spine CT 12/23/16 0348 Signed Impressions: Service Date/Time: Friday, December 23, 2016 04:01 - CONCLUSION: Normal examination. Chronic disc space narrowing at both C5-6 and C6-7 levels. bD Bennett MD Abdomen/Pelvis CT 12/23/16 0348 Signed Impressions: Service Date/Time: Friday, December 23, 2016 04:08 - CONCLUSION: Tiny amount of fluid adjacent to the spleen otherwise unremarkable CT scan of the abdomen and pelvis Db Bennett MD Tibia/Fibula X-Ray 12/23/16 0000 Signed Impressions: Service Date/Time: Friday, December 23, 2016 03:37 - CONCLUSION: Unremarkable examination of the left tibia and fibula. Db Bennett MD Narrative Exam GENERAL: 41-year-old well-nourished, well developed male lying in bed. SKIN: Warm and dry. Scattered abrasions noted. HEAD: Normocephalic. ENT: No nasal bleeding or discharge. Mucous membranes pink and moist. NECK: Trachea midline. No JVD. CARDIOVASCULAR: Regular rate and rhythm. RESPIRATORY: No accessory muscle use. Lungs clear to auscultation. Breath sounds equal bilaterally. GASTROINTESTINAL: Abdomen soft, non-tender, nondistended. + BS. MUSCULOSKELETAL: Extremities without cyanosis, or edema. LEFT thigh ZULEYKA wrap in place. Soft compartments. LEFT posterior arm ecchymosis noted. NEUROLOGICAL: Awake and alert. Speech clear. A/P Assessment and Plan INJURIES: LEFT Open femur fx Concussion PMHx: tobacco abuse, drug abuse 12/23: Reduction of left femur with IM alayna fixation Diet: Regular, tolerating Pulm: IS, encouraged use Pain: [place], Motrin, Morphine IV for breakthrough, Neurontin and Robaxin. Oxycodone was changed to [place] today. Activity: OOB. PT evaluating (TTWB LLE) Bowel: Liliya-colace 2 tabs, Lactulose. No BM yet. Mag citrate 1 DVT: SCDs, Lovenox 30 BID LEFT Open femur fx Orthopedics consulted 12/23: Reduction of left femur with IM alayna fixation Pain control OOB- PT TTWB LLE IV Ancef Lovenox Hgb 8.3 yesterday- H&H today pending Nursing to update Med Rec. Case management consulted to assist discharge planning. Plan to discharge home in 1-2 days when pain is better controlled. Patient reports he has a back entrance to his home that does not have stairs. Patient to purchase/rent wheelchair for home. Plan for Outpatient PT. CM to provide patient with blue card for [facility] F/U. Remarks seen and examined with SAFETY COMPLIANCE SPECIALIST -agree with assessment and plan [id number] still has pain at incisional site continue PT ,pain control Sanjay Ahn Dec 26, 2016 12:25 Beatriz Alva MD Dec 26, 2016 16:44
[2016-12-26] MEDS ORDERED: MAGNESIUM CITRATE SOLN 300 ML BTL PO ONE (12:30)
[2016-12-26] MEDS: IBUPROFEN 400 MG TAB PO SCH ×3 (12:30→22:29)
[2016-12-26 13:36] LABS: REVIEW FLAG FINAL
[2016-12-26] MEDS: ENOXAPARIN SODIUM 30 MG/0.3 ML SYRINGE SQ SCH ×2 (13:43→22:29)
[2016-12-26 16:57] VITALS: BP 120/75; PULSE 89; RESP 14; TEMP 97.9; O2SAT 98
[2016-12-26] MEDS ORDERED: SENN1TAB PO (18:15)
[2016-12-26] MEDS ORDERED: MILKSUS PO (18:15)
[2016-12-26 19:45] VITALS: BP 118/62; PULSE 91; RESP 17; TEMP 97.5; O2SAT 97
[2016-12-26] MEDS: FAMOTIDINE 20 MG TAB PO SCH (20:18)
[2016-12-26] MEDS: MELATONIN 5 MG TAB PO SCH (22:28)
[2016-12-27] VITALS (7 sets, daily range): BP systolic 110–159; BP diastolic 61–72; PULSE 70–86; RESP 16–19; TEMP 96.7–98; O2SAT 96–98
[2016-12-27] MEDS: ACETAMINOPHEN/HYDROcodone 325 MG/10 MG TAB PO PRN ×6 (02:58→21:13)
[2016-12-27 05:28] LABS: BASOPHIL # 0.1 TH/MM3 (0-0.2); BASOPHIL % 0.7 % (0.0-2.0); EOSINOPHIL # 0.1 TH/MM3 (0-0.4); EOSINOPHIL % 1.2 % (0.0-4.0); HEMATOCRIT 22.3 % (39.0-51.0); LYMPH % 21.7 % (9.0-44.0); LYMPHOCYTE # 1.9 TH/MM3 (1.0-4.8); MEAN CELL VOLUME 91.1 FL (80.0-100.0); MEAN CORPUSCULAR HEMOGLOBIN 31.7 PG (27.0-34.0); MEAN CORPUSCULAR HGB CONC 34.8 % (32.0-36.0); MONO % 9.3 % (0.0-8.0); NEUT % 67.1 % (16.0-70.0); PLATELET COUNT 281 TH/MM3 (150-450); RED BLOOD COUNT 2.44 MIL/MM3 (4.50-5.90); RED CELL DISTRIBUTION WIDTH 13.1 % (11.6-17.2); WHITE BLOOD COUNT 8.9 TH/MM3 (4.0-11.0)
[2016-12-27 05:32] LABS: HEMO FLAGS AUTO DIFF
[2016-12-27 05:59] LABS: ALT (GPT) 66 U/L (12-78); ANION GAP 6 MEQ/L (5-15); AST (GOT) 88 U/L (15-37); BICARBONATE 30.9 MEQ/L (21.0-32.0); BLOOD UREA NITROGEN 13 MG/DL (7-18); CHLORIDE 103 MEQ/L (98-107); GLOMERULAR FILTRATION RATE 117 ML/MIN (>89); MAGNESIUM 2.6 MG/DL (1.5-2.5); POTASSIUM 3.5 MEQ/L (3.5-5.1); SODIUM (NA) 140 MEQ/L (136-145)
[2016-12-27 06:02] LABS: ALKALINE PHOSPHATASE 100 U/L (45-117); TOTAL BILIRUBIN ADULT 0.9 MG/DL (0.2-1.0)
[2016-12-27] MEDS: IBUPROFEN 400 MG TAB PO SCH ×4 (06:02→23:10)
[2016-12-27] MEDS: METHOCARBAMOL 500 MG TAB PO SCH ×3 (06:03→21:13)
--- NOTE | 2016-12-27 06:58 | PD.ORT.PN ---
Subjective Subjective Remarks pain controlled no new complaints Objective Vitals Vital Signs Date Time Temp Pulse Resp B/P Pulse Ox O2 Delivery O2 Flow Rate FiO2 12/27/16 00:00 97.1 74 16 117/72 96 12/26/16 19:45 97.5 91 17 118/62 97 12/26/16 19:00 Room Air 12/26/16 16:57 97.9 89 14 120/75 98 12/26/16 08:46 98.5 78 14 121/67 96 I/O 12/26/16 12/26/16 12/26/16 12/27/16 12/27/16 12/27/16 07:00 15:00 23:00 07:00 15:00 23:00 Intake Total 600 ml 920 ml 720 ml Output Total 900 ml 700 ml Balance -300 ml -700 ml 920 ml 720 ml Intake Oral 600 ml 920 ml 720 ml Output Urine Total 900 ml 700 ml # Voids 2 1 # Bowel Movements 0 1 0 Result Diagram: 12/27/16 0500 12/27/16 0500 Imaging Last 24 hours Impressions Thoracic Spine CT 12/23/16347 Signed Impressions: Service Date/Time: Friday, December 23, 2016 04:08 - CONCLUSION: Normal examination except for a questionable right-sided inferior endplate hairline fracture involving T1. Db Bennett MD Pelvis X-Ray 12/23/16347 Signed Impressions: Service Date/Time: Friday, December 23, 2016 03:37 - CONCLUSION: Unremarkable examination of the pelvis. Db Bennett MD Lumbar Spine CT 12/23/16347 Signed Impressions: Service Date/Time: Friday, December 23, 2016 04:08 - CONCLUSION: No evidence of acute fracture but there is a bilateral L5 pars defect Db Bennett MD Head CT 12/23/16347 Signed Impressions: Service Date/Time: Friday, December 23, 2016 04:01 - CONCLUSION: Normal examination. Db Bennett MD Femur X-Ray 12/23/16347 Signed Impressions: Service Date/Time: Friday, December 23, 2016 03:37 - CONCLUSION: Transverse fracture mid shaft left femur. Db Bennett MD Chest X-Ray 12/23/16347 Signed Impressions: Service Date/Time: Friday, December 23, 2016 03:37 - CONCLUSION: Normal examination. Db Bennett MD Chest CT 12/23/16347 Signed Impressions: Service Date/Time: Friday, December 23, 2016 04:08 - CONCLUSION: Normal examination. Db Bennett MD Cervical Spine CT 12/23/16347 Signed Impressions: Service Date/Time: Friday, December 23, 2016 04:01 - CONCLUSION: Normal examination. Chronic disc space narrowing at both C5-6 and C6-7 levels. Db Bennett MD Abdomen/Pelvis CT 12/23/16347 Signed Impressions: Service Date/Time: Friday, December 23, 2016 04:08 - CONCLUSION: Tiny amount of fluid adjacent to the spleen otherwise unremarkable CT scan of the abdomen and pelvis Db Bennett MD Tibia/Fibula X-Ray 12/23/16 0000 Signed Impressions: Service Date/Time: Friday, December 23, 2016 03:37 - CONCLUSION: Unremarkable examination of the left tibia and fibula. Db Bennett MD Objective Remarks LLE: clean dry dressings and intact. NVI distally. Neg kelli. compartments soft Assessment & Plan Assessment and Plan 1) Left open Midshaft Femur Fx S/P I&D and IMN POD#4 PT - TTWB L LE Daily dressing changes xeroform over incision DVT prophylaxis with Lovenox then transition to Xarelto upon DC convert from oxycodone to hydrocodone incentive spirometry Plan for DC to home today f/u with Mervat or JOVANNA in 2 weeks Cezar Morel Jr. Dec 27, 2016 06:58
[2016-12-27] MEDS: LACTULOSE SYRUP 20 GM/30 ML CUP PO SCH (09:00)
[2016-12-27] MEDS: DOCUSATE SODIUM 50 MG/SENNA 8.6 MG TAB PO SCH ×2 (09:00→21:00)
[2016-12-27 09:43] LABS: SCAN/DIFF AUTO DIFF CONFIRMED
[2016-12-27] MEDS: GABAPENTIN 400 MG CAP PO SCH ×3 (09:44→18:16)
[2016-12-27] MEDS: CALCIUM/VITAMIN D 250 MG/125 U TAB PO SCH ×3 (09:44→18:16)
[2016-12-27] MEDS: BACITRACIN TOP OINT 15 GM TUBE TOP SCH ×2 (09:45→21:00)
[2016-12-27] MEDS ORDERED: POTASSIUM CHLORIDE 20 MEQ CONTROLLED RELEASE TAB PO ONE (11:15)
[2016-12-27] MEDS ORDERED: SODIUM CHLOR 0.9% 250 ML INJ 250 ML IV ONE (11:15)
[2016-12-27] MEDS ORDERED: FUROSEMIDE 20 MG/2 ML VIAL IV ONE ×2 (11:15→21:00)
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
[2016-12-27] MEDS: ENOXAPARIN SODIUM 30 MG/0.3 ML SYRINGE SQ SCH ×2 (13:14→23:11)
[2016-12-27] MEDS: FAMOTIDINE 20 MG TAB PO SCH (21:12)
[2016-12-27] MEDS: MELATONIN 5 MG TAB PO SCH (21:13)
[2016-12-28 00:41] VITALS: BP 101/55; PULSE 82; RESP 18; TEMP 97.5; O2SAT 96
[2016-12-28] MEDS: ACETAMINOPHEN/HYDROcodone 325 MG/10 MG TAB PO PRN ×5 (00:55→16:41)
[2016-12-28 05:55] LABS: AUTOMATED NEUTROPHIL # 5.2 TH/MM3 (1.8-7.7); BASOPHIL % 0.4 % (0.0-2.0); EOSINOPHIL # 0.1 TH/MM3 (0-0.4); EOSINOPHIL % 1.7 % (0.0-4.0); HEMATOCRIT 24.9 % (39.0-51.0); LYMPH % 25.2 % (9.0-44.0); MEAN CELL VOLUME 89.1 FL (80.0-100.0); MEAN CORPUSCULAR HGB CONC 35.9 % (32.0-36.0); MONO % 8.4 % (0.0-8.0); NEUT % 64.3 % (16.0-70.0); PLATELET COUNT 337 TH/MM3 (150-450); RED CELL DISTRIBUTION WIDTH 14.4 % (11.6-17.2)
[2016-12-28 06:17] LABS: ALT (GPT) 101 U/L (12-78); ANION GAP 7 MEQ/L (5-15); AST (GOT) 114 U/L (15-37); BICARBONATE 29.8 MEQ/L (21.0-32.0); BLOOD UREA NITROGEN 17 MG/DL (7-18); CHLORIDE 105 MEQ/L (98-107); GLOMERULAR FILTRATION RATE 107 ML/MIN (>89); SODIUM (NA) 142 MEQ/L (136-145)
[2016-12-28 06:20] LABS: ALKALINE PHOSPHATASE 126 U/L (45-117); TOTAL BILIRUBIN ADULT 1.2 MG/DL (0.2-1.0)
[2016-12-28] MEDS: METHOCARBAMOL 500 MG TAB PO SCH ×2 (06:25→12:19)
[2016-12-28] MEDS: IBUPROFEN 400 MG TAB PO SCH ×2 (06:25→12:20)
[2016-12-28 06:37] LABS: HEMO FLAGS AUTO DIFF
[2016-12-28] MEDS ORDERED: KETOROLAC TROMETHAMINE 30 MG/ML (IVP) VIAL IV PUSH ONE (07:15)
[2016-12-28 07:26] VITALS: BP 126/69; PULSE 71; RESP 17; TEMP 96.2; O2SAT 100
[2016-12-28] MEDS: GABAPENTIN 400 MG CAP PO SCH ×2 (08:50→12:19)
[2016-12-28] MEDS: CALCIUM/VITAMIN D 250 MG/125 U TAB PO SCH ×2 (08:50→12:19)
[2016-12-28] MEDS: LACTULOSE SYRUP 20 GM/30 ML CUP PO SCH (08:50)
[2016-12-28] MEDS: DOCUSATE SODIUM 50 MG/SENNA 8.6 MG TAB PO SCH (08:51)
[2016-12-28] MEDS: BACITRACIN TOP OINT 15 GM TUBE TOP SCH (08:51)
[2016-12-28] MEDS: ENOXAPARIN SODIUM 30 MG/0.3 ML SYRINGE SQ SCH (08:52)
[2016-12-28 10:22] LABS: BANDS 2 % (0-6); CORRECTED NUCLEATED RBC 1 /100 WBC (0-0); EOSINOPHILS 3 % (0-4); METAMYELOCYTES 1 % (0-1); MYELOCYTES 2 % (0-0); PLATELET ESTIMATE SMEAR NORMAL (NORMAL); PLATELET MORPHOLOGY NORMAL (NORMAL); POLYCHROMASIA 2.7 % (0.0-1.9); POLYS (SEG NEUTROPHILS) 58 % (16-70); SCAN/DIFF FINAL DIFF MANUAL; WBC DIFF SAMPLE 100
[2016-12-28 10:23] LABS: OVALOCYTES 1+ (NORMAL)
[2016-12-28 12:04] VITALS: BP 129/69; PULSE 74; RESP 17; TEMP 96.3; O2SAT 100
[2016-12-28 16:00] VITALS: BP 143/70; PULSE 77; RESP 17; TEMP 96.7; O2SAT 99
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
== END 2016-12-28 17:29 | disposition home health service (06) | DRG 482 ==
LOC: NEPI 03:41 → MERGE 04:36 → NEDA 04:36 → EDBD 04:36 → N06B 06:17
PROVIDERS: ADMIT Surgery; ATTEND Surgery
PROC: 0QS904Z Reposition Left Femoral Shaft with Internal Fixation Device, Open Approach (ICD-10-PCS; principal; 2016-12-23 09:25)
PROC: 30233N1 Transfusion of Nonautologous Red Blood Cells into Peripheral Vein, Percutaneous Approach (ICD-10-PCS; 2016-12-27)
DX: S72.322 Displaced transverse fracture of shaft of left femur (principal); Z68.34 Body mass index [BMI] 34.0-34.9, adult; F14.120 Cocaine abuse with intoxication, uncomplicated; S06.0X0A Concussion without loss of consciousness, initial encounter; E66.3 Overweight; D64.9 Anemia, unspecified; Z72.89 Other problems related to lifestyle; Y90.6 Blood alcohol level of 120-199 mg/100 ml; S40.811A Abrasion of right upper arm, initial encounter; S40.812A Abrasion of left upper arm, initial encounter; V28.4XXA Motorcycle driver injured in noncollision transport accident in traffic accident, initial encounter; Y92.410 Unspecified street and highway as the place of occurrence of the external cause; F17.210 Nicotine dependence, cigarettes, uncomplicated; K42.9 Umbilical hernia without obstruction or gangrene; R40.2412 Glasgow coma scale score 13-15, at arrival to emergency department
CPT/HCPCS: 36430; 51702; 70450; 71010; 71260; 72125; 72128; 72131; 72170; 73551; 73552; 74177; 76000; 80048; 80053; 80307; 82435; 82565; 82947; 83735; 84132; 84295; 84520; 85007; 85014; 85018; 85025; 85027; 85610; 85730; 86850; 86900; 86901; 86920; 90471; 90715; 94150; 96361; 96365; 96374; 96375; 99291; C1713; G0390; J0131; J0690; J1170; J1580; J1630; J1650; J1885; J1940; J2060; J2175; J2250; J2270; J2370; J2405; J2710; J3010; J3370; J7050; J7120; P9016; Q9967